=== PATIENT | female | born 1995 | race Caucasian/White ===

== ENCOUNTER 2024-01-25 10:57 | Outpatient (CLI) | payer BC, SELFPAY ==
[2024-01-25 19:26] LABS: Basophils # 0.1 K/mm3 (0-0.2); Basophils % 0.5 % (0.1-2.0); Eosinophils # 0.1 K/mm3 (0.0-0.4); Eosinophils % 1.3 % (0.1-12.0); Lymphocytes % 20.6 % (10-50); Mean Corpuscular HGB Conc 31.9 g/dL (31.8-35.4); Mean Corpuscular Hemoglobin 30.7 pg (27.0-31.2); Mean Corpuscular Volume 96.1 fl (81-99); Mean Platelet Volume 9.8 fl (7.4-10.4); Monocytes # 0.5 K/mm3 (0.1-1.0); Monocytes % 5.3 % (1.7-9.3); Neutrophils # 6.9 K/mm3 (1.8-7.8); Neutrophils % 72.2 % (37.0-80.0); Platelet Count 257 K/mm3 (142-424); Red Blood Count 4.89 M/mm3 (4.20-5.40); Red Cell Distribution Width 13.3 % (11.5-17.5); White Blood Count 9.5 K/mm3 (4.8-10.8)
[2024-01-25 20:06] LABS: Alanine Aminotransferase 32 U/L (12-78); Albumin/Globulin Ratio 1.3 (1.1-1.8); Alkaline Phosphatase 79 U/L (38-126); Anion Gap 13.1 mEq/L (5-15); Aspartate Amino Transferase 27 U/L (14-36); Bilirubin,Total 0.6 mg/dl (0.2-1.3); Blood Urea Nitrogen 11 mg/dl (7-17); Calcium 9.2 mg/dl (8.4-10.2); Carbon Dioxide 22 mmol/L (22.0-30.0); Chloride 108 mmol/L (98-107); Chol/HDL Ratio 4.5 (1-3.5); Cholesterol 166 mg/dl (140-200); Estimated Glomerular Filt Rate 147 ml/min (>60); GFR (African American) 178 ML/MIN (>60); Globulin 3.2 g/dL (1.3-3.2); Glucose 94 mg/dl (74-100); HDL Cholesterol 37 mg/dl (40-60); Potassium 4.1 mmoL/L (3.5-5.1); Sodium 139 mmol/L (136-145); Total Protein,Serum 7.2 g/dl (6.3-8.2); Triglycerides 143 mg/dl (30-150); VLDL Cholesterol 29 mg/dL (0-40)
[2024-01-25 20:16] LABS: Direct LDL Cholesterol 94.17 mg/dL (100-129)
[2024-01-25 20:25] LABS: 25-OH Vitamin D, Total 16.2 ng/mL (30-100)
[2024-01-25 20:40] LABS: Hemoglobin A1C 5.5 % (4.0-6.0)
[2024-01-26 11:47] LABS: HIV (1&2) Antibody Rapid NONREACTIVE (NONREACTIVE)
[2024-01-27 08:55] LABS: HCV Ab Non Reactive (Non Reactive)
== END 2024-01-25 23:59 | disposition home or self-care (01) ==
LOC: LAB.DROPOF 01-26 10:57
PROVIDERS: PCP Family Medicine; Visit Provider Family Medicine
DX: M54.50 Low back pain, unspecified (principal); E66.9 Obesity, unspecified; Z68.43 Body mass index [BMI] 50.0-59.9, adult; Z11.59 Encounter for screening for other viral diseases
CPT/HCPCS: 80050; 80053; 80061; 82306; 83036; 84443; 85025

== ENCOUNTER 2024-02-01 11:02 | Outpatient (CLI) | payer BC, SELFPAY ==
--- NOTE | 2024-02-01 11:07 | XR_ITS ---
FINAL REPORT CLINICAL HISTORY: knee pain FINDINGS: Left knee Three views were obtained. There is no acute fracture or dislocation. There are mild degenerative changes. Multiple soft tissue calcifications are seen medially. IMPRESSION: Mild degenerative changes with multiple soft tissue calcifications. Reviewed, Interpreted and Dictated by Francisco Avendano III, MD Transcribed by Sendy Rebollar Authenticated and [facility]
--- NOTE | 2024-02-01 11:07 | XR_ITS ---
FINAL REPORT CLINICAL HISTORY: ankle pain FINDINGS: Left ankle Three views were obtained. There is no acute fracture or dislocation. There are mild degenerative changes. Plantar calcaneal spur is identified. No soft tissue abnormality is identified. IMPRESSION: Mild degenerative changes. Reviewed, Interpreted and Dictated by Francisco Avendano III, MD Transcribed by Sendy Rebollar Authenticated and [facility]
--- NOTE | 2024-02-01 11:08 | US_ITS ---
FINAL REPORT CLINICAL HISTORY: location of control implant FINDINGS: Limited sonographic images of the medial left arm were obtained. Linear foreign body in the medial left upper arm is 10 cm from the elbow. IMPRESSION: Foreign body as above. Reviewed, Interpreted and Dictated by Francisco Avendano III, MD Transcribed by Sendy Rebollar Authenticated and [facility]
== END 2024-02-01 23:59 | disposition home or self-care (01) ==
LOC: RAD 11:02
PROVIDERS: PCP Family Medicine; Visit Provider Family Medicine
DX: M25.579 Pain in unspecified ankle and joints of unspecified foot (principal); M25.569 Pain in unspecified knee; S89.90XA Unspecified injury of unspecified lower leg, initial encounter; Z78.9 Other specified health status
CPT/HCPCS: 73562; 73610; 76882

== ENCOUNTER 2024-03-15 08:38 | Outpatient (CLI) | payer BC, SELFPAY ==
[2024-03-15 15:24] LABS: Benzodiazepines Screen,Urine Negative ng/ml (<200)
[2024-03-15 15:25] LABS: Amphetamine/Metha Screen,Urine Negative ng/ml (<1000)
[2024-03-15 15:26] LABS: Barbiturates Screen,Urine Negative ng/ml (<200); Cannabinoid Screen,Urine Positive ng/ml (<50)
[2024-03-15 15:27] LABS: Cocaine Screen,Urine Negative ng/ml (<300)
[2024-03-15 15:28] LABS: Methadone Screen,Urine Negative ng/ml (<300); Opiate Screen,Urine Negative ng/ml (<300)
[2024-03-15 15:29] LABS: Phencyclidine Screen,Urine Negative ng/ml (<25)
== END 2024-03-15 23:59 | disposition home or self-care (01) ==
LOC: LAB.DROPOF 03-18 08:38
PROVIDERS: PCP Obstetrics & Gynecology; Visit Provider Obstetrics & Gynecology
DX: Z79.899 Other long term (current) drug therapy (principal)
CPT/HCPCS: 80307

== ENCOUNTER 2024-04-16 11:02 | Outpatient (CLI) | payer BC, SELFPAY ==
[2024-04-16 12:01] LABS: Basophils # 0.1 K/mm3 (0-0.2); Basophils % 0.9 % (0.1-2.0); Eosinophils # 0.2 K/mm3 (0.0-0.4); Eosinophils % 2.2 % (0.1-12.0); Hematocrit 45.8 % (37.0-47.0); Hemoglobin 15.4 g/dL (12.2-16.2); Lymphocytes # 2.2 K/mm3 (0.7-4.5); Mean Corpuscular HGB Conc 33.5 g/dL (31.8-35.4); Mean Corpuscular Hemoglobin 30.8 pg (27.0-31.2); Mean Corpuscular Volume 91.8 fl (81-99); Mean Platelet Volume 7.7 fl (7.4-10.4); Monocytes # 0.7 K/mm3 (0.1-1.0); Monocytes % 7.5 % (1.7-9.3); Neutrophils % 65.4 % (37.0-80.0); Platelet Count 261 K/mm3 (142-424); Red Blood Count 4.98 M/mm3 (4.20-5.40); White Blood Count 9.1 K/mm3 (4.8-10.8)
[2024-04-16 12:34] LABS: Alanine Aminotransferase 55 U/L (12-78); Albumin Level 4.5 g/dl (3.5-5.0); Albumin/Globulin Ratio 1.5 (1.1-1.8); Alkaline Phosphatase 77 U/L (38-126); Anion Gap 17.1 mEq/L (5-15); Aspartate Amino Transferase 41 U/L (14-36); Bilirubin,Total 0.8 mg/dl (0.2-1.3); Blood Urea Nitrogen 13 mg/dl (7-17); Calcium 9.4 mg/dl (8.4-10.2); Carbon Dioxide 24 mmol/L (22.0-30.0); Chloride 102 mmol/L (98-107); Estimated Glomerular Filt Rate 147 ml/min (>60); GFR (African American) 178 ML/MIN (>60); Glucose 94 mg/dl (74-100); Potassium 4.1 mmoL/L (3.5-5.1); Sodium 139 mmol/L (136-145); Total Protein,Serum 7.5 g/dl (6.3-8.2)
[2024-04-16 12:53] LABS: HCG,Quantitative < 2 mIU/ml (0-5.42)
== END 2024-04-16 23:59 | disposition home or self-care (01) ==
LOC: LAB 11:03
PROVIDERS: PCP Family Medicine; Visit Provider Obstetrics & Gynecology
DX: Z30.46 Encounter for surveillance of implantable subdermal contraceptive (principal)
CPT/HCPCS: 80053; 84702; 85025

== ENCOUNTER → 2024-04-17 11:01 | Day surgery (SDC) | payer BC, SELFPAY ==
[2024-04-12 13:16] VITALS: BMI 58.6
--- NOTE | 2024-04-17 11:05 | XR_ITS ---
PROCEDURE INFORMATION: Exam: XR Left Humerus Exam date and time: 04/17/2024 11:19 AM Age: 28 years old Clinical indication: Screening exam; Foreign body, nexplanon TECHNIQUE: Imaging protocol: Radiologic exam of the left humerus. Views: 2 or more views. AP and Lateral COMPARISON: No relevant prior studies available. FINDINGS: Bones/joints: No acute bony fracture identified. No evidence for a joint effusion. Soft tissues: Linear radiopaque foreign body within the soft tissues anteromedial to the distal humerus diaphysis. This foreign body measures up to 5 cm length. The soft tissues appear otherwise unremarkable. Notes: If there is further concern, recommend follow-up radiographs or bone scan for complete assessment. IMPRESSION: Linear soft tissue radiopaque foreign body within the anteromedial aspect of the distal left upper arm.
--- NOTE | 2024-04-17 17:40 | SUR.PREOP ---
late entry: pt was c/o cough, GARCES, ear pain for the last three days. After preop interview with anesthesia, decision was made to postpone procedure and for pt to follow up with her PCP.
[2024-04-17 18:10] LABS: Coronavirus 19, PCR Not Detected (NotDetected); Influenza A, PCR Not Detected (NotDetected); Influenza B, PCR Not Detected (NotDetected)
== END ==
LOC: OR 11:02
PROVIDERS: PCP Family Medicine; Visit Provider Obstetrics & Gynecology
DX: R05.9 Cough, unspecified (principal); Z30.46 Encounter for surveillance of implantable subdermal contraceptive; Z30.430 Encounter for insertion of intrauterine contraceptive device; Z53.8 Procedure and treatment not carried out for other reasons
CPT/HCPCS: 73060; 87636

== ENCOUNTER 2024-05-24 08:25 | Day surgery (SDC) | payer BC, SELFPAY ==
[2024-05-24 08:42] VITALS: BMI 57.6
[2024-05-24 08:58] LABS: Basophils # 0.1 K/mm3 (0-0.2); Eosinophils # 0.3 K/mm3 (0.0-0.4); Eosinophils % 2.6 % (0.1-12.0); Hematocrit 45.7 % (37.0-47.0); Hemoglobin 15.8 g/dL (12.2-16.2); Lymphocytes # 2.7 K/mm3 (0.7-4.5); Lymphocytes % 24.2 % (10-50); Mean Corpuscular HGB Conc 34.7 g/dL (31.8-35.4); Mean Corpuscular Hemoglobin 31.4 pg (27.0-31.2); Mean Corpuscular Volume 90.6 fl (81-99); Mean Platelet Volume 7.9 fl (7.4-10.4); Monocytes # 0.6 K/mm3 (0.1-1.0); Monocytes % 5.2 % (1.7-9.3); Neutrophils # 7.4 K/mm3 (1.8-7.8); Platelet Count 275 K/mm3 (142-424); Red Blood Count 5.04 M/mm3 (4.20-5.40); Red Cell Distribution Width 13.2 % (11.5-17.5); White Blood Count 11.1 K/mm3 (4.8-10.8)
[2024-05-24 09:02] LABS: Albumin Level 4.3 g/dl (3.5-5.0); Chloride 107 mmol/L (98-107); Potassium 4.3 mmoL/L (3.5-5.1); Sodium 139 mmol/L (136-145)
[2024-05-24 09:03] LABS: Urine Pregnancy, HCG Qual. Negative (Negative)
[2024-05-24 09:05] LABS: Alanine Aminotransferase 47 U/L (12-78); Albumin/Globulin Ratio 1.4 (1.1-1.8); Alkaline Phosphatase 73 U/L (38-126); Anion Gap 10.3 mEq/L (5-15); Aspartate Amino Transferase 38 U/L (14-36); Bilirubin,Total 0.5 mg/dl (0.2-1.3); Blood Urea Nitrogen 16 mg/dl (7-17); Calcium 9.3 mg/dl (8.4-10.2); Carbon Dioxide 26 mmol/L (22.0-30.0); Creatinine Clearance Estimated 90 mL/min (50-200); Estimated Glomerular Filt Rate 100 ml/min (>60); GFR (African American) 121 ML/MIN (>60); Glucose 96 mg/dl (74-100); Total Protein,Serum 7.3 g/dl (6.3-8.2)
[2024-05-24 09:10] VITALS: BP 103/85; PULSE 103; RESP 16; TEMP 36.3; O2SAT 96
[2024-05-24] MEDS: LACTATED RINGERS 1000ML 1,000 ML 25 ML IV (09:22)
--- NOTE | 2024-05-24 09:25 | EXP.ANES.CKL ---
[facility] Disclaimer: The information contained in this section may have been updated after the patient was seen, as this information can be updated by other users. Medical History delivery delivered 3 children Sciatic nerve pain Lower back pain Left knee pain has 3 children Surgical History Previous section Family History Other No significant family history Social History Smoking Status: Heavy tobacco smoker years smoked: 12 quit status: considering quitting alcohol intake: current counseling given: No substance use type: marijuana current occupational status: unemployed Travel in the last 8 weeks: None household members: significant other marital status: single number of children: 3 [facility] Anesthesia Checklist Patient Identification Patient Identification: Arm Band Structural Data Admitted From: Home Planned Operative Procedure/s: Nexplanon Removal Under Fluoroscopy + Mirena Insertion Consent for Planned Operative Procedure(s) Verified: Yes Verified Documents: Surgical Consent and History and Physical NPO Status Verified Time NPO: 00:00 Additional verifications Anesthesia Reactions: No Hx Blood Transfusions: No Blood Transfusion Reaction: No Airway Assessment Mallampati Score:: Class II C-Spine Mobility Assessed: Yes TMJ Mobility Assessed: Yes Dentition: Good Dentition Neurological Assessment Level of Consciousness: Awake, Alert and Appropriate Anesthesia Plan Anesthesia Risk discussed: Yes Anesthesia Plan: Verified ASA Class: III Anesthesia Type: MAC
[2024-05-24] MEDS: LIDOCAINE 1% W/EPI 1:100,000 20ML VIAL 20 ML (09:51)
[2024-05-24 10:30] VITALS: BP 122/74; PULSE 92; RESP 16; TEMP 36.2; O2SAT 98
--- NOTE | 2024-05-24 10:31 | XR_ITS ---
FINAL REPORT CLINICAL HISTORY: NEXPLANON REMOVAL LEFT 1.1 ivan 3.50 mGy COMPARISON: None FINDINGS: FLUOROSCOPY LESS THAN 1 HOUR HISTORY: FINDINGS: Fluoroscopic guidance was provided for removal of Nexplanon from left arm. 2 spot films were obtained. 1.1 minutes of fluoroscopy time were used, with dosage of 3.50 mGy. IMPRESSION: As above. Reviewed, Interpreted and Dictated by Francisco Avendano III, MD Transcribed by Karen Yeboah Authenticated and [facility]
--- NOTE | 2024-05-24 10:39 | EXP.OP.NOTE ---
Date of procedure: 05/24/24 Pre-op Diagnosis:: 1. Desires Nexplanon removal 2. Needs Pap smear 3. Desires IUD placement, Mirena Post-op Diagnosis:: 1. Desires Nexplanon removal 2. Needs Pap smear 3. Desires IUD placement, Mirena Procedure performed:: 1. Nexplanon removal 2. Pap smear collected 3. Mirena IUD placed Surgeon:: Angela Lainez DO Roof Promenade Tile Setter(s):: Dr. Easton FINISHER WALLBOARD AND PLASTERBOARD:: Pratik Sosa Anesthesia: MAC Estimated blood loss (mL): 5 Operative findings:: Morbid obesity unable to palpate Nexplanon. EUA non revealing secondary to habitus. Small nulliparous appearng cervix Operative note:: Patient was taken to the OR and prepped and draped in the normal sterile fashion. She was prepped for use of the left C-arm and with yellow fin stippups in the dorsal lithotomy position. Dr. Easton was able to use the C-arm to triangulate the Nexplanon and remove it without complication. Nexplanon removed in its entirety. Attention was turned vaginally. Pap collected. Gonorrhea and chlamydia will be run on pap smear. Anterior lip of the cervix was grasped withthe single tooth tenaculum. Munir uterine dilators used to dilated the cervix. The uterus sounded to 9cm. Mirena obtained and set up. Device inserted an deployed without difficulty. IUD strings trimmed to 3cm. All instruments removed. Hemostatsis noted. Pt tolerated the procedure but was noted to have discomfort with significant movement and requiring additional anesthesia. I do not believe it would have been possible to collect a pap smear or place an IUD in the office secondary to habitus and pt discomfort. Secondary to significant movement during procedure she will have a follow up US to verify placement. Condition: stable Disposition: same day Specimens:: none Complications:: none
[2024-05-24 10:40] VITALS: BP 136/75; PULSE 87; RESP 16; O2SAT 97
[2024-05-24 10:50] VITALS: BP 129/72; PULSE 95; RESP 18; O2SAT 99
[2024-05-24 11:00] VITALS: BP 126/75; PULSE 87; RESP 18; O2SAT 98
== END 2024-05-24 11:00 | disposition home or self-care (01) ==
PROVIDERS: PCP Family Medicine; Visit Provider Obstetrics & Gynecology
PROC: (CPT 11982; principal; 2024-05-24 11:00)
DX: Z30.46 Encounter for surveillance of implantable subdermal contraceptive (principal); Z12.4 Encounter for screening for malignant neoplasm of cervix; Z30.430 Encounter for insertion of intrauterine contraceptive device
CPT/HCPCS: 11982; 58300; J7298; Q0091; 73060; 80053; 81025; 85025; J2250; J3010; J7120

== ENCOUNTER 2024-06-03 15:11 | Outpatient (CLI) | payer BC, SELFPAY ==
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
== END 2024-06-03 23:59 | disposition home or self-care (01) ==
LOC: RAD 15:13
PROVIDERS: PCP Family Medicine; Visit Provider Family Medicine
DX: R52 Pain, unspecified (principal)
CPT/HCPCS: 71100

== ENCOUNTER 2024-07-04 14:35 | Outpatient (CLI) | payer MEDICAID, SELFPAY | END 2024-07-04 23:59 | disposition home or self-care (01) | LOC: RT 14:36 | PROVIDERS: PCP Family Medicine; Visit Provider Family Medicine | DX: R00.0 Tachycardia, unspecified (principal) | CPT/HCPCS: 93225; 93227 ==

== ENCOUNTER 2024-07-08 13:31 | Outpatient (CLI) | payer MEDICAID, SELFPAY | END 2024-07-08 23:59 | disposition home or self-care (01) | LOC: RT 13:33 | PROVIDERS: PCP Family Medicine; Visit Provider Family Medicine | DX: R00.0 Tachycardia, unspecified (principal) | CPT/HCPCS: 93270; 93272 ==

== ENCOUNTER 2024-08-16 14:26 | Outpatient (CLI) | payer MEDICAID, SELFPAY ==
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
== END 2024-08-16 23:59 | disposition home or self-care (01) ==
LOC: RAD 14:26
PROVIDERS: PCP Family Medicine; Visit Provider Family Medicine
DX: N64.4 Mastodynia (principal)
CPT/HCPCS: 76641

== ENCOUNTER → 2024-09-02 07:14 | Outpatient (CLI) | payer MEDICAID, SELFPAY | LOC: SL 07:15 | PROVIDERS: PCP Family Medicine; Visit Provider Family Medicine | DX: G47.33 Obstructive sleep apnea (adult) (pediatric) (principal); R40.0 Somnolence; R06.83 Snoring | CPT/HCPCS: G0399 ==

== ENCOUNTER 2025-01-08 10:01 | Outpatient (CLI) | payer MEDICAID, SELFPAY ==
[2025-01-07 09:11] VITALS: BMI 52.5
--- NOTE | 2025-01-08 10:03 | XR_ITS ---
FINAL REPORT CLINICAL HISTORY: preop ENT, shortness of breath COMPARISON: None FINDINGS: PA and lateral views of the chest were obtained. No acute pulmonary density is evident. There is no evidence of effusion or other pleural disease. The mediastinum has a normal appearance. The cardiac silhouette is unremarkable. IMPRESSION: Unremarkable chest exam. Reviewed, Interpreted and Dictated by Yoel Garcia MD Transcribed by Kourtney Abernathy Authenticated and [facility]
--- OUTSIDE RECORDS SUMMARY | 2025-01-08 10:03 | XMS_ITS | Clinical Summary ---
Author Organization Healthcare Address [address] [place] [address] Care Team Providers Care Thread Cutter Tender Name Role Phone Angela Jimenez APRN Primary Care Provider [phone] Allergies No known active allergies Medications * This document contains information received from the source organization and may not represent a complete record from that organization. DULoxetine (Cymbalta) [address] Kimberley ns:Mixed obsessional thoughts and acts Take 1 capsule (60 mg total) by mouth 1 (one) time each day. Script 2 of 2. Do not crush or chew. 30 capsule 2 2 Active propranolol (Inderal) 20 MG tabletIndication s:Mixed obsessional thoughts and acts Take 1 tablet (20 mg total) by mouth 3 (three) times a day. 90 tablet 1 2 Active busPIRone (Buspar) 30 MG tabletIndication s:Mixed obsessional thoughts and acts TAKE 1 TABLET(30 MG) BY MOUTH TWICE DAILY 60 tablet 1 2 Active lidocaine (Lidoderm) 5 % patch Apply 1 patch topically 1 (one) time each day over 12 hours. Remove & discard patch within 12 hours or as directed by MD. 5 patch 4 Active methocarbamol (Robaxin) 500 MG tablet Take 2 tablets (1,000 mg) by mouth at night if needed for muscle spasms. 20 tablet 4 Active Active Problems Problem Noted Date Diagnosed Date Mixed obsessional thoughts and acts 11/12/2021 Social History Tobacco Use Types Packs/Day Years Used Date Smoking Tobacco: Never Assessed PHQ-2 Answer Date Recorded Patient Health Questionnaire-2 Score 4 02/14/2022 Comments Unknown Sex and Gender Information Value Date Recorded Sex Assigned at Not on file Legal Sex Female 8:44 AM EDT Gender Identity Not on file Sexual Orientation Not on file Last Filed Vital Signs Vital Sign Reading Time Taken Comments Blood Pressure 126/84 05/26/2024 9:59 PM EST Pulse 93 05/26/2024 9:59 PM EST Temperature 36.4 C (97.5 F) 05/26/2024 9:59 PM EST Respiratory Rate 18 05/26/2024 9:59 PM EST Oxygen Saturation 98% 05/26/2024 9:59 PM EST Inhaled Oxygen Concentration - - Weight 138 kg (305 lb) 05/26/2024 5:42 PM EST Height 157.5 cm (5' 2 ) 05/26/2024 5:42 PM EST Body Mass Index 55.79 05/26/2024 5:42 PM EST Plan of Treatment Health Maintenance Due Date Last Done Comments [facility]-/Child/Adol SDOH Screenings 1995 [facility]-Obesity Intervention 11/02/2001 [facility]-Varicella Vaccines (1 of 2 - 13+ 2-dose series) 11/02/2008 HPV Vaccines (1 - 3-dose series) 11/02/2010 [facility]- SDOH Screenings 11/02/2013 [facility]-Adult SDOH Screenings 11/02/2013 [facility]-Hepatitis B Vaccines (1 of 3 - 19+ 3-dose series) 11/02/2014 [facility]-Pap Smear 11/02/2016 [facility]-Depression Screening 02/14/2023 022, 02/14/2022 [id number] Vaccine (2 - 2023- season) 2024 09/15/2021 [facility]-Influenza Vaccine (#1) 2025 [facility]-DTaP,Tdap,and Td Vaccine s (2 - Td or Tdap) 01/12/2031 01/12/2021 [facility]-Zoster Vaccines (1 of 2) 11/02/2045 [facility]-HIV Screening Completed 05/26/2024 [facility]-Hepatitis C Screening Completed 05/26/2024 [facility]-HIB Vaccines Aged Out No longer e ligible based on patient's age to complete this topic [facility]-Hepatitis A Vaccines Aged Out No longer eligible based on patient's age to complete this topic [facility]-IPV Vaccines Aged Out No longer e ligible based on patient's age to complete this topic [facility]-Pneumococcal Vaccine: Pediatrics (0 to 5 Years) and At-Risk Patients (6 to 49 Years) Aged Out No longer eligible b ased on patient's age to complete this topic [facility]-Rotavirus Vaccines Aged Out No lo nger eligible based on patient's age to complete this topic Procedures Procedure Name Priority Date/Time Associated Diagnosis Comments HEPATITIS C ANTIBODY - ED W/REFLEX TO HCV QUANT PCR STAT 05/26/2024 6:43 PM EST ED HIV 1/2 ANTIBODY/ANTIGEN SCREEN WITH REFLEX TO HIV I/II DIFFERENTIATION STAT 05/26/2024 6:43 PM EST from Last 3 Months or Most Recently Relevant to Health Maintenance Results * ED HIV 1/2 Antibody/Antigen Screen w/Reflex to HIV 1/2 Differentiation (05/26/2024 6:43 PM EST) HIV 1 & 2 Antibody/Antigen Screen Non Reactive Non Reactive 05/26/2024 7:37 PM EST [facility] Comment:Screening for HIV 1 & 2 antibodies, and P24 antigen is NONREACTIVE. No confirmatory testing is required. Blood Venous blood specimen / Unknown Venipuncture / Unknown 05/26/2024 6:43 PM EST 05/26/2024 6:56 PM EST us Beti Funez MD LAB BLOOD ORDERABLES Final R esult [facility] [address] [place] [address] * Hepatitis C Antibody - ED (05/26/2024 6:43 PM EST) Hepatitis C Antibody Negative Negative 05/26/2024 7:35 PM EST [facility] Blood Venous blood specimen / Unknown Venipuncture / Unknown 05/26/2024 6:43 PM EST 05/26/2024 6:55 PM EST us Beti Funez MD LAB BLOOD ORDERABLES Final R esult [facility] [address] [place] [address] from Last 3 Months or Most Recently Relevant to Health Maintenance Care Teams Thread Cutter Tender Relationship Specialty Start Date End Date Angela Jimenez APRN [address] [place] [address] PCP - General 10/19/21
[2025-01-08 10:16] VITALS: BMI 58.6
--- NOTE | 2025-01-08 10:27 | ECG_ITS ---
APPROVED REPORT Exam: Resting ECG HR:71 bpm ECG Measurements Heart Rate 71 AXES ID 166 P 12 QRSd 81 QRS 15 QT 384 T 19 QTc 406 Conclusion SINUS RHYTHM LOW QRS VOLTAGE IN PRECORDIAL LEADS [QRS DEFLECTION < 1.0 mV IN CHEST LEADS] BORDERLINE ECG UNCONFIRMED REPORT Electronically signed by : Domingo Garnica MD 01/10/2025 07:56:03
[2025-01-08 10:51] LABS: Urine Pregnancy, HCG Qual. Negative (Negative)
[2025-01-08 10:56] LABS: Hematocrit 43.9 % (37.0-47.0); Hemoglobin 13.9 g/dL (12.2-16.2); Mean Corpuscular HGB Conc 31.7 g/dL (31.8-35.4); Mean Corpuscular Hemoglobin 29.7 pg (27.0-31.2); Mean Corpuscular Volume 93.8 fl (81-99); Platelet Count 209 K/mm3 (142-424); Red Blood Count 4.68 M/mm3 (4.20-5.40); White Blood Count 7.0 K/mm3 (4.8-10.8)
[2025-01-08 10:57] LABS: Chloride 108 mmol/L (98-107); Potassium 3.9 mmoL/L (3.5-5.1); Sodium 135 mmol/L (136-145)
[2025-01-08 11:00] LABS: Anion Gap 8.9 mEq/L (5-15); Blood Urea Nitrogen 14 mg/dl (7-17); Calcium 9.0 mg/dl (8.4-10.2); Carbon Dioxide 22 mmol/L (22.0-30.0); Creatinine Clearance Estimated 104 mL/min (50-200); Creatinine,Serum 0.60 mg/dl (0.52-1.04); Estimated Glomerular Filt Rate 118 ml/min (>60); GFR (African American) 143 ML/MIN (>60); Glucose 94 mg/dl (74-100)
[2025-01-08 12:22] LABS: Total Cells Counted 100
[2025-01-08 12:23] LABS: RBC Morphology Normal
== END 2025-01-08 23:59 | disposition home or self-care (01) ==
LOC: PREOP 10:01
PROVIDERS: PCP Family Medicine; Visit Provider Otolaryngology
DX: Z01.810 Encounter for preprocedural cardiovascular examination (principal); Z01.811 Encounter for preprocedural respiratory examination; Z01.812 Encounter for preprocedural laboratory examination; R94.31 Abnormal electrocardiogram [ECG] [EKG]
CPT/HCPCS: 71046; 80048; 81025; 85007; 85014; 85018; 85048; 85049; 93005

== ENCOUNTER 2025-01-13 06:33 | Day surgery (SDC) | payer MEDICAID, SELFPAY ==
[2025-01-08 12:09] VITALS: BMI 58.6
[2025-01-13] VITALS (9 sets, daily range): BP systolic 108–138; BP diastolic 57–100; PULSE 60–68; RESP 16–20; TEMP 36.2–36.9; O2SAT 93–98
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
[2025-01-13] MEDS: CIPRO 0.3%-DEX 0.1% OTIC SUSP 7.5ML 7.5 ML OT (08:23)
[2025-01-13] MEDS: LIDOCAINE 1% W/EPI 1:100,000 20ML VIAL 20 ML (08:23)
[2025-01-13] MEDS: OXYMETAZOLINE NASAL SPRAY 0.05% 15ML 15 ML NS (08:23)
[2025-01-13] MEDS: MUPIROCIN 2% OINTMENT 22GM TUBE 22 GM TP (08:52)
--- NOTE | 2025-01-13 09:10 | P.PNANES_ITS ---
[facility] Anesthesia Record Part I Anesthesia Record I Intake, IV Amount: 800 Hydration: Adequate Estimated blood loss (mL): 0 Urine output (mL): 0 Blood Products used (#): none Blood Pressure: 108/77 SaO2: 97 Pulse Rate: 68 Airway Patency: Patent Respiratory Rate: 20 Temperature: 98 F Patient is:: Awake, Mask O2 and Stable Stable to PACU at:: 09:16
--- NOTE | 2025-01-13 09:12 | P.OP_ITS ---
Date of procedure: 01/13/25 Pre-op Diagnosis:: Chronic eustachian tube dysfunction Chronic otitis media Post-op Diagnosis:: Same Nasal septal impaction left Procedure performed:: 1. Bilateral eustachian tube balloon dilatation 2. Bilateral myringotomy with tube placement 3. Endoscopic septoplasty left Surgeon:: Lavell Mendiola III, MD Agricultural Equipment Sales Manager(s):: None PHOTONICS ENGINEERING TECHNICIAN:: Anahi Wilcox Anesthesia: GETA Estimated blood loss (mL): 25 Operative findings:: Patient had an impacted septal defect on the left which made access to the eustachian tube difficult, we therefore elected proceed with an endoscopic septoplasty in order to achieve access and to improve airflow. Operative note:: The patient was brought to the operating placed under general endotracheal anesthesia with IV sedation. The left expiratory canal was cleaned and inspected under the microscope. A radial incision was made inferiorly in the tympanic membrane. A Dura-Vent tube was placed through the incision followed by antibiotic drops. Similar procedure was performed on the left side. The nose was prepped with topical Afrin and lidocaine on cottonoids. I also injected 1% lidocaine with epinephrine along the inferior turbinates and the left septal defect. After adequate time was allowed for vasoconstriction the cottonoids were removed. 0 degree pediatric endoscope was used to inspect the right side the nasal cavity. Using the Audion eustachian tube balloon I was able to cannulate the eustachian tube on the right advance the balloon and inflated for 2 minutes. Topical mupirocin ointment was then applied. On the left side I made an incision anterior to the septal spur midway back along the bony septum. The mucosal incision was then used to elevate the flap over the bony defect. Th e bone spur was removed giving improved airflow and access to the eustachian tube on the left. Once the eustachian tube was cannulated, the balloon was advanced and inflated for 2 minutes. After this was removed I placed a Gelfoam pack infiltrated with mupirocin ointment over the septal defect. Mupirocin ointment was also placed near the eustachian tube opening. The patient was then awakened in the operating room and taken recovery room in good condition; estimated blood loss less than 30 mL . Condition: stable Disposition: PACU Complications:: None
== END 2025-01-13 10:13 | disposition home or self-care (01) ==
PROVIDERS: PCP Family Medicine; Visit Provider Otolaryngology
PROC: (CPT 30520; principal; 2025-01-13 08:00)
DX: H65.493 Other chronic nonsuppurative otitis media, bilateral (principal); H69.83 Other specified disorders of Eustachian tube, bilateral; J34.89 Other specified disorders of nose and nasal sinuses; F17.200 Nicotine dependence, unspecified, uncomplicated; F41.9 Anxiety disorder, unspecified; Z56.0 Unemployment, unspecified; Z86.19 Personal history of other infectious and parasitic diseases; Z79.899 Other long term (current) drug therapy
CPT/HCPCS: 30520; 69421; 69706; C1726; J1100; J1200; J2003; J2004; J2250; J2371; J2405; J2704; J3010